=== PATIENT | female | born 1990 | race Caucasian/White ===

== ENCOUNTER 2018-09-06 05:45 | Day surgery (SDC) | payer OTHER, BC ==
[2018-09-06] MEDS ORDERED: FENTAnyl 50 MCG/ML VIAL (08:13)
[2018-09-06] MEDS ORDERED: MIDAZOLAM 1 MG/ML 2 ML INJ ×2 (08:13)
== END 2018-09-06 12:42 | disposition home or self-care (01) ==
LOC: GIL 05:45
DX: K29.50 Unspecified chronic gastritis without bleeding (principal)
CPT/HCPCS: 43239; 84703; 88305; 88312